=== PATIENT | male | born 1990 | race Two or more races ===

== ENCOUNTER 2017-01-03 09:35 | Emergency (ER) | payer SELFPAY ==
[~2017-01-03] VITALS: Ht 170.2 cm; Wt 82.6 kg
[2017-01-03 09:45] VITALS: BP 134/90
[2017-01-03] MEDS ORDERED: CYCL10TA2 PO (09:57)
[2017-01-03] MEDS ORDERED: NAPR500T PO (09:57)
--- NOTE | 2017-01-03 09:58 | PHYS DOC ---
Past Medical History Past Medical History: Anxiety, Other Additional Past Medical Histor: CHRONIC BACK PAIN Past Surgical History: Appendectomy, Other Additional Past Surgical Histo: HERNIA REPAIR Alcohol Use: None Drug Use: Marijuana Adult General Chief Complaint Chief Complaint: BACK PAIN OR INJURY [facility] HPI Patient is a 26 year old male presents to the emergency department with an 8 year history of chronic back pain. Patient states that he is in need of pain medications. He states he generally comes to the emergency department and receives a prescription for pain medications. Decribes the pain as diffuse in his back and muscular in nature. He has no shortness of breath. No abdominal pain. No loss of function of lower extremities, no loss of bowel or bladder control. Review of Systems Review of Systems Constitutional: Denies fever or chills [] Eyes: Denies change in visual acuity, redness, or eye pain [] HENT: Denies nasal congestion or sore throat [] Respiratory: Denies cough or shortness of breath [] Cardiovascular: No additional information not addressed in HPI [] GI: Denies abdominal pain, nausea, vomiting, bloody stools or diarrhea [] : Denies dysuria or hematuria [] Musculoskeletal: back pain Integument: Denies rash or skin lesions [] Neurologic: Denies headache, focal weakness or sensory changes [] Endocrine: Denies polyuria or polydipsia [] Allergies Allergies Allergies Coded Allergies Type Severity Reaction Last Updated Verified No Known Drug Allergies 10/21/15 No Physical Exam Physical Exam Constitutional: Well developed, well nourished, no acute distress, non-toxic appearance. [] HENT: Normocephalic, atraumatic, bilateral external ears normal, oropharynx moist, no oral exudates, nose normal. [] Eyes: PERRLA, EOMI, conjunctiva normal, no discharge. [] Neck: Normal range of motion, no tenderness, supple, no stridor. [] Cardiovascular:Heart rate regular rhythm, no murmur [] Lungs & Thorax: Bilateral breath sounds clear to auscultation [] Abdomen: Bowel sounds normal, soft, no tenderness, no masses, no pulsatile masses. [] Skin: Warm, dry, no erythema, no rash. [] Back: He is tenderness without midline tenderness. No CVA tenderness. Extremities: No tenderness, no cyanosis, no clubbing, ROM intact, no edema. Saddle anesthesia. Muscle strength is 5 over 5. DTRs 2 over 4. [] Neurologic: Alert and oriented X 3, normal motor function, normal sensory function, no focal deficits noted. [] Psychologic: Affect normal, judgement normal, mood normal. [] Current Patient Data Vital Signs Vital Signs Date Time Temp Pulse Resp B/P (MAP) Pulse Ox O2 Delivery O2 Flow Rate FiO2 01/03/17 09:45 98.3 87 18 98 Room Air 98.3 EKG EKG [] Radiology/Procedures Radiology/Procedures [] Course & Med Decision Making Course & Med Decision Making Pertinent Labs and Imaging studies reviewed. (See chart for details) [] Dragon Disclaimer Dragon Disclaimer This electronic medical record was generated, in whole or in part, using a voice recognition dictation system. Departure Departure Impression: Primary Impression: Chronic back pain Disposition: 01 HOME, SELF-CARE Condition: STABLE Referrals: NO PCP (PCP) Patient Instructions: Chronic Back Pain Scripts Naproxen (NAPROSYN) 500 Mg Tablet 1 TAB PO BID Y for PAIN, #20 TAB 1 Refill Prov: ELLE BARTH APRN 01/03/17 Cyclobenzaprine Hcl (CYCLOBENZAPRINE HCL) 10 Mg Tablet 1 TAB PO TID Y for spasm, #30 TAB Prov: ELLE BARTH APRN 01/03/17 ELLE BARTH APRN Jan 03, 2017 09:58
[2017-01-03] MEDS ORDERED: NAPROXEN 500 MG TABLET PO STA (09:59)
== END 2017-01-03 10:06 | disposition home or self-care (01) ==
LOC: ER 09:35
DX: G89.29 Other chronic pain (principal); M54.89 Other dorsalgia; F12.10 Cannabis abuse, uncomplicated; Z98.890 Other specified postprocedural states; Z90.49 Acquired absence of other specified parts of digestive tract
CPT/HCPCS: 99283